=== PATIENT | male | born 1940 | race Caucasian/White ===

== ENCOUNTER 2017-12-10 05:11 | Emergency (ER) | payer MEDICARE ==
[~2017-12-10] VITALS: Ht 170.2 cm; Wt 83.6 kg
[~2017-12-10 05:11] MED LIST: ACET-812 PO; DABI150C PO; OMEG1CAP PO; PHEN100C4 PO; PRAV20TA4 PO
[2017-12-10] MEDS ORDERED: dexamethasone sod phosphate 10mg/ml inj IV STA (05:26)
[2017-12-10] MEDS ORDERED: ondansetron/PF 4mg/2ml inj IV ONE (05:30)
[2017-12-10] MEDS ORDERED: morphine 2 MG/ML inj. syringe IV ONE (05:30)
[2017-12-10] MEDS ORDERED: lisinopril 10 MG tablet PO ONE (06:15)
[2017-12-10] MEDS ORDERED: lisinopril 5mg tablet PO ONE (06:20)
[2017-12-10] MEDS ORDERED: HYDR-3965 PO (06:21)
[2017-12-10 06:31] VITALS: BP 179/96
== END 2017-12-10 06:34 | disposition home or self-care (01) ==
LOC: ER 05:12
DX: M62.830 Muscle spasm of back (principal); G89.29 Other chronic pain; I10 Essential (primary) hypertension; Z95.0 Presence of cardiac pacemaker; Z98.890 Other specified postprocedural states; Z88.0 Allergy status to penicillin; Z88.8 Allergy status to other drugs, medicaments and biological substances; Z79.899 Other long term (current) drug therapy
CPT/HCPCS: 72050; 96374; 96375; 99284; J1100; J2270; J2405

== ENCOUNTER 2018-09-18 09:06 | Outpatient (CLI) | payer MEDICARE | END 2018-09-18 23:59 | disposition home or self-care (01) | LOC: RAD 09:06 | PROVIDERS: ATTEND Orthopaedic Surgery Hand Surgery | DX: M47.812 Spondylosis without myelopathy or radiculopathy, cervical region (principal); G56.23 Lesion of ulnar nerve, bilateral upper limbs; M50.323 Other cervical disc degeneration at C6-C7 level; R20.2 Paresthesia of skin; I10 Essential (primary) hypertension | CPT/HCPCS: 72141 ==

== ENCOUNTER 2019-12-18 12:40 | Outpatient (CLI) | payer MEDICARE | END 2019-12-18 23:59 | disposition home or self-care (01) | LOC: VAS 12:40 | PROVIDERS: ATTEND Psychiatry & Neurology Neurology | DX: M19.031 Primary osteoarthritis, right wrist (principal); M47.812 Spondylosis without myelopathy or radiculopathy, cervical region; M50.21 Other cervical disc displacement, high cervical region; M50.221 Other cervical disc displacement at C4-C5 level; M50.223 Other cervical disc displacement at C6-C7 level; M48.02 Spinal stenosis, cervical region; I82.432 Acute embolism and thrombosis of left popliteal vein; G56.90 Unspecified mononeuropathy of unspecified upper limb | CPT/HCPCS: 72141; 73221; 93971 ==

== ENCOUNTER 2020-01-18 05:50 | Day surgery (SDC) | payer MEDICARE ==
[2020-01-11 14:54] LABS: BASOPHILS # (AUTO) 0.1 X10'3 (0-0.2); EOSINOPHILS # (AUTO) 0.2 X10'3 (0-0.9); HEMATOCRIT 47.4 % (42.0-52.0); HEMOGLOBIN 15.9 g/dl (14.0-17.9); LYMPHOCYTES # (AUTO) 1.5 X10'3 (1.1-4.8); LYMPHOCYTES % (AUTO) 23.7 % (21-51); MEAN CORPUSCULAR HEMOGLOBIN 32.9 PG (27.0-31.0); MEAN CORPUSCULAR HGB CONC 33.5 g/dL (33.0-36.5); MEAN CORPUSCULAR VOLUME 98.3 FL (78-98); MEAN PLATELET VOLUME 8.3 FL (7.4-10.4); MONOCYTES # (AUTO) 0.9 X10'3 (0-0.9); MONOCYTES % (AUTO) 13.8 % (2-12); NEUTROPHILS # (AUTO) 3.7 X10'3 (1.8-7.7); NEUTROPHILS % (AUTO) 58.5 % (42-75); PLATELET COUNT 169 X10'3 (140-440); RED BLOOD COUNT 4.82 X10'6 (4.70-6.10); RED CELL DISTRIBUTION WIDTH 14.4 % (11.5-14.5); WHITE BLOOD COUNT 6.3 X10'3 (4.5-11.0)
[2020-01-11 15:10] LABS: ALANINE AMINOTRANSFERASE 26 U/L (12-78); ALBUMIN 4.3 G/DL (3.4-5.0); ALBUMIN/GLOBULIN RATIO 1.3 (1.1-1.5); ALKALINE PHOSPHATASE 87 IU/L (46-116); ANION GAP 6 (8-16); ASPARTATE AMINO TRANSFERASE 24 U/L (10-37); BILIRUBIN,TOTAL 0.7 MG/DL (0.1-1.0); BLOOD UREA NITROGEN 20 MG/DL (7-18); BUN/CREATININE RATIO 21.1 (5.4-32.0); CALCIUM 9.4 MG/DL (8.5-10.1); CHLORIDE 108 MMOL/L (99-107); CREATININE 0.95 MG/DL (0.60-1.10); GLUCOSE 79 MG/DL (70-104); POTASSIUM 4.5 MMOL/L (3.5-5.1); SODIUM 142 MMOL/L (135-145); TOTAL CARBON DIOXIDE 28.1 MMOL/L (24-32); TOTAL PROTEIN 7.5 G/DL (6.4-8.2); eGFR 77 ML/MIN
[~2020-01-18] VITALS: Ht 170.2 cm; Wt 89.8 kg
[2020-01-18] VITALS (7 sets, daily range): BP systolic 116–178; BP diastolic 76–98
[~2020-01-18 05:50] MED LIST changes: +clindamycin-Cleocin 900mg/D5W 50 ML IV ONE; +famotidine 20mg tablet PO ONE; +ringers solution, lacted 1,000 ML IV SCH
[2020-01-18] MEDS ORDERED: BUPIVAcaine/PF 2.5 mg/ml (0.25%) 30ml vial ONE (06:47)
[2020-01-18] MEDS ORDERED: LIDOcaine 0.5% (5mg/ml) 50ml vial ONE (07:12)
[2020-01-18] MEDS ORDERED: ringers solution, lacted 1,000 ML IV SCH (07:17)
[2020-01-18] MEDS ORDERED: morphine 2 MG/ML inj. syringe IV PRN (07:20)
[2020-01-18] MEDS ORDERED: morphine 4 MG/ML inj SYRINge IV PRN (07:20)
[2020-01-18] MEDS ORDERED: ondansetron/PF 4mg/2ml inj IV PRN (07:20)
[2020-01-18] MEDS ORDERED: hydrALAZINE 20mg/ml inj. IV PRN (07:20)
[2020-01-18] MEDS ORDERED: labetalol 20mg/4ml (5mg/ml) syringe IV PRN (07:20)
[2020-01-18] MEDS ORDERED: fentaNYL/PF 50MCG/1 ML 2ML syringe IV PRN (07:20)
[2020-01-18] MEDS ORDERED: fentaNYL/PF 50MCG/1 ML 2ML syringe ONE (07:21)
[2020-01-18] MEDS ORDERED: MIDAZolam 1mg/ml 10ml vial ONE (07:21)
[2020-01-18] MEDS ORDERED: ketorolac trometh. 30mg/ml inj. ONE (07:24)
[2020-01-18] MEDS ORDERED: labetalol 20mg/4ml (5mg/ml) syringe IV ONE (07:41)
--- NOTE | 2020-01-18 08:05 | NUR ---
Received from OR via [facility] , accompanied by Anesthesiologist BOBBI and report given by Anesthesiolgist. PATIENT WITH 20G PIV IN LEFT UE RUNNING LR AT 100. DENIES PAIN. RIGHT ELBOW AND WRIST DRESSINGS ARE CDI. PATIENT WITH + CAP REFILL AND DENIES PAIN. Addendum: 01/18/20 at 0813 by Cyrus Wills RN, RN Amended: Links added.
--- NOTE | 2020-01-18 09:41 | NUR ---
ALL DC CRITERIA HAS BEEN MET. IV TAKEN OUT WITHOUT COMPLICATIONS. ALL INSTRUCTIONS COVERED AND ALL QUESTIONS ANSWERED. DRESSINGS CDI. OUT VIA WHEELCHAIR TO PERSONAL VEHICLE WHERE PATIENT WAS SECURED IN AND DRIVEN HOME BY FAMILY. DEMONSTRATED A SAFE GAIT OF 25 FEET AND AND PATIENT FEEL THEY ARE READY TO GO HOME. Addendum: 01/18/20 at 0952 by Cyrus Wills RN, RN Amended: Links added.
== END 2020-01-18 09:41 | disposition home or self-care (01) ==
LOC: PAS 05:50
PROVIDERS: ATTEND Orthopaedic Surgery Hand Surgery
DX: G56.01 Carpal tunnel syndrome, right upper limb (principal); G56.21 Lesion of ulnar nerve, right upper limb; G47.30 Sleep apnea, unspecified; I10 Essential (primary) hypertension; E11.9 Type 2 diabetes mellitus without complications; M19.90 Unspecified osteoarthritis, unspecified site; E78.00 Pure hypercholesterolemia, unspecified; M81.0 Age-related osteoporosis without current pathological fracture; M35.3 Polymyalgia rheumatica; G40.909 Epilepsy, unspecified, not intractable, without status epilepticus; Z95.0 Presence of cardiac pacemaker; Z98.890 Other specified postprocedural states; Z95.2 Presence of prosthetic heart valve; Z88.0 Allergy status to penicillin; Z79.899 Other long term (current) drug therapy; Z86.11 Personal history of tuberculosis; Z72.89 Other problems related to lifestyle; Z80.3 Family history of malignant neoplasm of breast; Z82.3 Family history of stroke; Z82.49 Family history of ischemic heart disease and other diseases of the circulatory system
CPT/HCPCS: 36415; 64718; 64721; 71045; 80053; 82948; 85025; J1885; J2001; J2250; J3010; J3490; A4215; A6449; J7120

== ENCOUNTER 2023-10-04 12:11 | Day surgery (SDC) | payer MEDICARE ==
[2023-10-04] VITALS (12 sets, daily range): BP systolic 135–219; BP diastolic 43–81; PULSE 69–91; RESP 16–23; TEMP 98.4; O2SAT 94–98
[~2023-10-04] VITALS: Ht 170.2 cm; Wt 86.5 kg
[~2023-10-04 12:11] MED LIST changes: -OMEG1CAP PO; +OMEG1CAP61 PO; -PHEN100C4 PO; -PRAV20TA4 PO; -clindamycin-Cleocin 900mg/D5W 50 ML IV ONE; -famotidine 20mg tablet PO ONE; -ringers solution, lacted 1,000 ML IV SCH
[2023-10-04] MEDS ORDERED: fentaNYL/PF 50MCG/1 ML 2ML syringe IV ONE (12:40)
[2023-10-04] MEDS ORDERED: MIDAZolam 1mg/ml 10ml vial IV ONE (12:40)
[2023-10-04] MEDS ORDERED: normal saline 1000ml 1,000 ML IV SCH (12:40)
[2023-10-04] MEDS ORDERED: APIX5TAB3 PO (13:15)
[2023-10-04] MEDS ORDERED: LOSA100T58 PO (13:15)
[2023-10-04] MEDS ORDERED: ROSU10TA28 PO (13:15)
[2023-10-04] MEDS ORDERED: LEVE500T PO (13:15)
[2023-10-04] MEDS ORDERED: FURO20TA4 PO (13:15)
== END 2023-10-04 17:01 | disposition home or self-care (01) ==
LOC: SSTAY O 12:11
PROVIDERS: ATTEND Student in an Organized Health Care Education/Training Program
DX: I08.0 Rheumatic disorders of both mitral and aortic valves (principal); I25.10 Atherosclerotic heart disease of native coronary artery without angina pectoris; I44.1 Atrioventricular block, second degree; E78.5 Hyperlipidemia, unspecified; I49.5 Sick sinus syndrome; I48.0 Paroxysmal atrial fibrillation; I25.2 Old myocardial infarction; I10 Essential (primary) hypertension; G43.B0 Ophthalmoplegic migraine, not intractable; G40.909 Epilepsy, unspecified, not intractable, without status epilepticus; Z85.46 Personal history of malignant neoplasm of prostate; Z95.0 Presence of cardiac pacemaker; Z79.899 Other long term (current) drug therapy; Z79.01 Long term (current) use of anticoagulants; Z88.0 Allergy status to penicillin; Z88.5 Allergy status to narcotic agent; Z91.048 Other nonmedicinal substance allergy status; Z95.2 Presence of prosthetic heart valve; Z82.49 Family history of ischemic heart disease and other diseases of the circulatory system
CPT/HCPCS: 93312; 93325; 94760; J2250; J3010; J7030; A4620

== ENCOUNTER 2023-11-25 13:17 | Day surgery (SDC) | payer MEDICARE ==
[2023-11-18 13:17] LABS: BASOPHILS # (AUTO) 0.1 X10'3 (0-0.2); BASOPHILS % (AUTO) 0.8 % (0-1); EOSINOPHILS # (AUTO) 0.2 X10'3 (0-0.9); EOSINOPHILS % (AUTO) 2.3 % (0-6); HEMATOCRIT 41.4 % (42.0-52.0); HEMOGLOBIN 13.4 g/dl (14.0-17.9); LYMPHOCYTES # (AUTO) 0.6 X10'3 (1.1-4.8); LYMPHOCYTES % (AUTO) 9.9 % (21-51); MEAN CORPUSCULAR HEMOGLOBIN 34.4 PG (27.0-31.0); MEAN CORPUSCULAR HGB CONC 32.3 g/dL (33.0-36.5); MEAN CORPUSCULAR VOLUME 106.6 FL (78-98); MEAN PLATELET VOLUME 10.5 FL (7.4-10.4); MONOCYTES # (AUTO) 0.7 X10'3 (0-0.9); MONOCYTES % (AUTO) 10.2 % (2-12); NEUTROPHILS % (AUTO) 76.8 % (42-75); PLATELET COUNT 95 X10'3 (140-440); RED BLOOD COUNT 3.89 X10'6 (4.70-6.10); RED CELL DISTRIBUTION WIDTH 15.5 % (11.5-14.5); WHITE BLOOD COUNT 6.5 X10'3 (4.5-11.0)
[2023-11-18 13:31] LABS: APTT 26 SECONDS (22-32); INR 1.1 INR; PROTHROMBIN TIME 11.6 SECONDS (9.0-12.0)
[2023-11-18 13:41] LABS: ALBUMIN 4.3 G/DL (3.4-5.0); ANION GAP 9 (8-16); BLOOD UREA NITROGEN 26 MG/DL (7-18); BUN/CREATININE RATIO 32.5 (10.0-20.0); CALCIUM 9.8 MG/DL (8.5-10.1); CHLORIDE 108 MMOL/L (99-107); CHOL/HDL RATIO 1.9 (0.00-4.99); CHOLESTEROL 102 MG/DL (0-200); GLUCOSE 113 MG/DL (70-104); HDL CHOLESTEROL 54 MG/DL (35-60); LDL CHOLESTEROL 39 MG/DL (50-100); POTASSIUM 4.5 MMOL/L (3.5-5.1); SODIUM 144 MMOL/L (135-145); TOTAL CARBON DIOXIDE 26.9 MMOL/L (24-32); TRIGLYCERIDES 36 MG/DL (20-135); eGFR > 90 ML/MIN
[2023-11-18 15:28] LABS: ALANINE AMINOTRANSFERASE 22 U/L (12-78); ALBUMIN/GLOBULIN RATIO 1.5 (1.1-1.5); ALKALINE PHOSPHATASE 52 IU/L (46-116); ASPARTATE AMINO TRANSFERASE 25 U/L (10-37); BILIRUBIN,DIRECT 0.4 MG/DL (0-0.3); BILIRUBIN,TOTAL 1.1 MG/DL (0.1-1.0); TOTAL PROTEIN 7.2 G/DL (6.4-8.2)
[2023-11-25] VITALS (10 sets, daily range): BP systolic 151–183; BP diastolic 52–61; PULSE 68–71; RESP 15–25; TEMP 97.6; O2SAT 93–96
[~2023-11-25] VITALS: Ht 170.2 cm; Wt 88.1 kg
[~2023-11-25 13:17] MED LIST changes: +APIX5TAB3 PO; -DABI150C PO; +FURO20TA4 PO; +LEVE500T PO; +LOSA100T58 PO; -OMEG1CAP61 PO; +ROSU10TA28 PO
[2023-11-25] MEDS ORDERED: diphenhydrAMINE 25mg capsule PO PRN (14:00)
[2023-11-25] MEDS ORDERED: normal saline 1,000 ML IV SCH (14:00)
[2023-11-25] MEDS ORDERED: LORazepam 0.5 MG tablet PO PRN (14:00)
[2023-11-25 14:10] LABS: BASOPHILS % (AUTO) 0.7 % (0-1); EOSINOPHILS # (AUTO) 0.1 X10'3 (0-0.9); EOSINOPHILS % (AUTO) 1.1 % (0-6); HEMATOCRIT 40.9 % (42.0-52.0); HEMOGLOBIN 13.3 g/dl (14.0-17.9); LYMPHOCYTES # (AUTO) 0.6 X10'3 (1.1-4.8); LYMPHOCYTES % (AUTO) 7.8 % (21-51); MEAN CORPUSCULAR HEMOGLOBIN 34.6 PG (27.0-31.0); MEAN CORPUSCULAR HGB CONC 32.4 g/dL (33.0-36.5); MEAN CORPUSCULAR VOLUME 106.7 FL (78-98); MEAN PLATELET VOLUME 9.5 FL (7.4-10.4); MONOCYTES # (AUTO) 0.9 X10'3 (0-0.9); MONOCYTES % (AUTO) 11.8 % (2-12); NEUTROPHILS # (AUTO) 5.8 X10'3 (1.8-7.7); NEUTROPHILS % (AUTO) 78.6 % (42-75); PLATELET COUNT 90 X10'3 (140-440); RED BLOOD COUNT 3.83 X10'6 (4.70-6.10); RED CELL DISTRIBUTION WIDTH 15.1 % (11.5-14.5); WHITE BLOOD COUNT 7.3 X10'3 (4.5-11.0)
[2023-11-25] MEDS ORDERED: MULT-1120 PO (14:16)
[2023-11-25] MEDS ORDERED: tumeric PO (14:16)
[2023-11-25] MEDS ORDERED: CYAN1TAB41 PO (14:16)
[2023-11-25 14:24] LABS: ANION GAP 10 (8-16); BLOOD UREA NITROGEN 31 MG/DL (7-18); CALCIUM 9.5 MG/DL (8.5-10.1); CHLORIDE 108 MMOL/L (99-107); CREATININE 0.86 MG/DL (0.60-1.10); GLUCOSE 89 MG/DL (70-104); POTASSIUM 4.2 MMOL/L (3.5-5.1); SODIUM 142 MMOL/L (135-145); TOTAL CARBON DIOXIDE 24.3 MMOL/L (24-32); eCRCL 63 ML/MIN; eGFR 85 ML/MIN
[2023-11-25 14:26] LABS: INR 1.1 INR; PROTHROMBIN TIME 11.9 SECONDS (9.0-12.0)
[2023-11-25] MEDS ORDERED: LIDOcaine 1% (10mg/ml) 2ml vial ONE (15:58)
[2023-11-25] MEDS ORDERED: verapamil 2.5 mg/ml inj IV ONE (15:58)
[2023-11-25] MEDS ORDERED: midazolam 1 mg/ML 2ml injection ONE (15:58)
[2023-11-25] MEDS ORDERED: heparin 1,000unit/ml 10ml vial 10 ML ONE (15:58)
[2023-11-25] MEDS ORDERED: fentaNYL/PF 50MCG/1 ML 2ML syringe ONE (15:58)
[2023-11-25] MEDS ORDERED: iohexol 350MG/ML 100ml bottle IV ONE (15:58)
[2023-11-25] MEDS ORDERED: nitroGLYCERIN 500mcg/5mL D5W 5 ML IV ONE (15:59)
[2023-11-25 16:00] LABS: PLATELET ESTIMATE DECREASED
[2023-11-25 16:02] LABS: BURR CELLS 1+; SCHISTOCYTES FEW
[2023-11-25 16:03] LABS: ELLIPTOCYTES 1+
[2023-11-25] MEDS ORDERED: HYDROcodone/acetaminophen 5mg/325mg tablet PO PRN (17:10)
[2023-11-25] MEDS ORDERED: HYDROcodone/acetaminophen 10/325mg tab PO PRN (17:10)
== END 2023-11-25 19:15 | disposition home or self-care (01) ==
LOC: SSTAY O 13:17
PROVIDERS: ATTEND Student in an Organized Health Care Education/Training Program
DX: I08.3 Combined rheumatic disorders of mitral, aortic and tricuspid valves (principal); I25.10 Atherosclerotic heart disease of native coronary artery without angina pectoris; I44.1 Atrioventricular block, second degree; I48.0 Paroxysmal atrial fibrillation; I49.5 Sick sinus syndrome; I10 Essential (primary) hypertension; I27.20 Pulmonary hypertension, unspecified; E78.5 Hyperlipidemia, unspecified; G40.909 Epilepsy, unspecified, not intractable, without status epilepticus; I25.2 Old myocardial infarction; Z95.0 Presence of cardiac pacemaker; Z86.718 Personal history of other venous thrombosis and embolism; Z79.899 Other long term (current) drug therapy; Z79.01 Long term (current) use of anticoagulants; Z85.46 Personal history of malignant neoplasm of prostate; Z88.0 Allergy status to penicillin; Z88.5 Allergy status to narcotic agent; Z88.8 Allergy status to other drugs, medicaments and biological substances; Z91.048 Other nonmedicinal substance allergy status
CPT/HCPCS: 36415; 80048; 80061; 80076; 85025; 85610; 85730; 93005; 93458; 93567; 99152; A6258; J1644; J2250; J3010; J3490; J7030; Q0163; Q9967; 85008; 93452; A6402; C1894

== ENCOUNTER 2023-12-08 11:28 | Outpatient (CLI) | payer MEDICARE ==
[~2023-12-08 11:28] MED LIST changes: +CYAN1TAB41 PO; -FURO20TA4 PO; +MULT-1120 PO; +tumeric PO
[2023-12-08 12:30] LABS: APTT 29 SECONDS (22-32); BASOPHILS % (AUTO) 0.6 % (0-1); EOSINOPHILS # (AUTO) 0.1 X10'3 (0-0.9); EOSINOPHILS % (AUTO) 1.4 % (0-6); HEMATOCRIT 41.1 % (42.0-52.0); HEMOGLOBIN 13.5 g/dl (14.0-17.9); INR 1.2 INR; LYMPHOCYTES # (AUTO) 0.6 X10'3 (1.1-4.8); LYMPHOCYTES % (AUTO) 8.1 % (21-51); MEAN CORPUSCULAR HEMOGLOBIN 34.6 PG (27.0-31.0); MEAN CORPUSCULAR HGB CONC 32.8 g/dL (33.0-36.5); MEAN CORPUSCULAR VOLUME 105.6 FL (78-98); MEAN PLATELET VOLUME 10.4 FL (7.4-10.4); MONOCYTES # (AUTO) 0.7 X10'3 (0-0.9); MONOCYTES % (AUTO) 9.5 % (2-12); NEUTROPHILS # (AUTO) 6.2 X10'3 (1.8-7.7); NEUTROPHILS % (AUTO) 80.4 % (42-75); PLATELET COUNT 87 X10'3 (140-440); RED BLOOD COUNT 3.89 X10'6 (4.70-6.10); RED CELL DISTRIBUTION WIDTH 14.8 % (11.5-14.5); WHITE BLOOD COUNT 7.8 X10'3 (4.5-11.0)
[2023-12-08 12:41] LABS: ALANINE AMINOTRANSFERASE 21 U/L (12-78); ALBUMIN 4.1 G/DL (3.4-5.0); ALBUMIN/GLOBULIN RATIO 1.5 (1.1-1.5); ALKALINE PHOSPHATASE 56 IU/L (46-116); ANION GAP 7 (8-16); ASPARTATE AMINO TRANSFERASE 20 U/L (10-37); BLOOD UREA NITROGEN 37 MG/DL (7-18); BUN/CREATININE RATIO 37.4 (10.0-20.0); CALCIUM 9.5 MG/DL (8.5-10.1); CHLORIDE 106 MMOL/L (99-107); CREATININE 0.99 MG/DL (0.60-1.10); GLUCOSE 111 MG/DL (70-104); POTASSIUM 4.3 MMOL/L (3.5-5.1); PRO BRAIN NATRIURETIC PEPTIDE 5068 PG/ML (0-450); SODIUM 140 MMOL/L (135-145); TOTAL PROTEIN 6.9 G/DL (6.4-8.2); eGFR 73 ML/MIN
[2023-12-08] MEDS ORDERED: IODIXANOL 320 MG/ML INFUS..BTL 100ML IV ONE (13:04)
== END 2023-12-08 23:59 | disposition home or self-care (01) ==
LOC: RAD 11:28
PROVIDERS: ATTEND Internal Medicine Cardiovascular Disease
DX: I08.0 Rheumatic disorders of both mitral and aortic valves (principal); R06.02 Shortness of breath; I65.29 Occlusion and stenosis of unspecified carotid artery; I11.9 Hypertensive heart disease without heart failure; I77.89 Other specified disorders of arteries and arterioles; M47.816 Spondylosis without myelopathy or radiculopathy, lumbar region; M85.88 Other specified disorders of bone density and structure, other site; Z96.642 Presence of left artificial hip joint
CPT/HCPCS: 36415; 71275; 74174; 75574; 80053; 83880; 85025; 85610; 85730; J3490; Q9967

== ENCOUNTER 2023-12-14 11:30 | Emergency (ER) | payer MEDICARE ==
[~2023-12-14] VITALS: Ht 170.2 cm; Wt 88.0 kg
[2023-12-14 11:59] LABS: BASOPHILS # (AUTO) 0.1 X10'3 (0-0.2); BASOPHILS % (AUTO) 0.9 % (0-1); EOSINOPHILS # (AUTO) 0.1 X10'3 (0-0.9); EOSINOPHILS % (AUTO) 1.9 % (0-6); HEMATOCRIT 40.6 % (42.0-52.0); HEMOGLOBIN 13.2 g/dl (14.0-17.9); LYMPHOCYTES # (AUTO) 0.7 X10'3 (1.1-4.8); LYMPHOCYTES % (AUTO) 11.5 % (21-51); MEAN CORPUSCULAR HEMOGLOBIN 34.2 PG (27.0-31.0); MEAN CORPUSCULAR HGB CONC 32.4 g/dL (33.0-36.5); MEAN CORPUSCULAR VOLUME 105.3 FL (78-98); MEAN PLATELET VOLUME 10.4 FL (7.4-10.4); MONOCYTES # (AUTO) 0.7 X10'3 (0-0.9); MONOCYTES % (AUTO) 11.7 % (2-12); NEUTROPHILS # (AUTO) 4.3 X10'3 (1.8-7.7); PLATELET COUNT 87 X10'3 (140-440); RED BLOOD COUNT 3.85 X10'6 (4.70-6.10); RED CELL DISTRIBUTION WIDTH 14.9 % (11.5-14.5); WHITE BLOOD COUNT 5.9 X10'3 (4.5-11.0)
[2023-12-14 12:22] LABS: ALBUMIN 4.2 G/DL (3.4-5.0); ANION GAP 8 (8-16); BLOOD UREA NITROGEN 31 MG/DL (7-18); CALCIUM 9.6 MG/DL (8.5-10.1); CHLORIDE 106 MMOL/L (99-107); CREATININE 0.94 MG/DL (0.60-1.10); GLUCOSE 99 MG/DL (70-104); POTASSIUM 4.5 MMOL/L (3.5-5.1); PRO BRAIN NATRIURETIC PEPTIDE 3244 PG/ML (0-450); SODIUM 140 MMOL/L (135-145); TOTAL CARBON DIOXIDE 26.1 MMOL/L (24-32); eGFR 77 ML/MIN
[2023-12-14] MEDS ORDERED: FURO-150 PO (13:33)
[2023-12-14] MEDS ORDERED: iohexol 300mg/ml 100ml inj. ONE (14:56)
[2023-12-14 14:57] LABS: BILIRUBIN,URINE NEGATIVE (Neg); CLARITY,URINE CLEAR (Clear); COLOR,URINE YELLOW (Yellow); GLUCOSE, URINE NEGATIVE (Neg); KETONES,URINE NEGATIVE (Neg); LEUKOCYTE ESTERASE ,URINE NEGATIVE (Neg); NITRITES, URINE NEGATIVE (Neg); OCCULT BLOOD,URINE NEGATIVE (Neg); PROTEIN,URINE NEGATIVE (Neg); UROBILINOGEN,URINE 0.2 E.U/dL (0.2-1.0)
[2023-12-14 15:15] LABS: UA COLLECTION TYPE CLN CATCH MIDSTREAM
[2023-12-14 15:48] LABS: URINE AMPHETAMINE SCREEN NEGATIVE (Neg); URINE BARBITUATE SCREEN NEGATIVE (Neg); URINE BENZODIAZEPINES SCREEN NEGATIVE (Neg); URINE CANNABINOID SCREEN NEGATIVE (Neg); URINE COCAINE SCREEN NEGATIVE (Neg); URINE METHADONE SCREEN NEGATIVE (Neg); URINE OPIATE SCREEN NEGATIVE (Neg); URINE PHENCYCLIDINE SCREEN NEGATIVE (Neg)
[2023-12-14 16:14] LABS: BASOPHILS % (AUTO) 0.7 % (0-1); EOSINOPHILS # (AUTO) 0.1 X10'3 (0-0.9); EOSINOPHILS % (AUTO) 1.8 % (0-6); HEMATOCRIT 39.2 % (42.0-52.0); HEMOGLOBIN 12.8 g/dl (14.0-17.9); LYMPHOCYTES # (AUTO) 0.6 X10'3 (1.1-4.8); LYMPHOCYTES % (AUTO) 11.1 % (21-51); MEAN CORPUSCULAR HEMOGLOBIN 34.3 PG (27.0-31.0); MEAN CORPUSCULAR HGB CONC 32.7 g/dL (33.0-36.5); MEAN PLATELET VOLUME 10.3 FL (7.4-10.4); MONOCYTES # (AUTO) 0.5 X10'3 (0-0.9); MONOCYTES % (AUTO) 9.7 % (2-12); NEUTROPHILS # (AUTO) 4.2 X10'3 (1.8-7.7); NEUTROPHILS % (AUTO) 76.7 % (42-75); PLATELET COUNT 83 X10'3 (140-440); RED BLOOD COUNT 3.73 X10'6 (4.70-6.10); RED CELL DISTRIBUTION WIDTH 14.9 % (11.5-14.5); WHITE BLOOD COUNT 5.4 X10'3 (4.5-11.0)
[2023-12-14 16:18] VITALS: TEMP 98
[2023-12-14 16:21] LABS: APTT 30 SECONDS (22-32); INR 1.2 INR; PROTHROMBIN TIME 13.1 SECONDS (9.0-12.0)
[2023-12-14 17:47] VITALS: BP 149/53; PULSE 69; RESP 18; O2SAT 97
== END 2023-12-14 18:31 | disposition admitted as inpatient to this hospital (09) ==
LOC: ER 11:30
DX: G45.9 Transient cerebral ischemic attack, unspecified (principal); I63.9 Cerebral infarction, unspecified; G45.4 Transient global amnesia; D64.9 Anemia, unspecified; R79.89 Other specified abnormal findings of blood chemistry; I10 Essential (primary) hypertension; Z88.0 Allergy status to penicillin; Z88.8 Allergy status to other drugs, medicaments and biological substances; Z88.5 Allergy status to narcotic agent; Z79.899 Other long term (current) drug therapy
CPT/HCPCS: 36415; 70450; 70496; 70498; 71045; 80048; 80305; 81003; 82948; 83880; 84145; 84484; 85025; 85610; 85730; 86885; 86900; 86901; 93005; 99285; J3490; Q9967

== ENCOUNTER 2024-01-12 06:14 | Inpatient (IN) | payer MEDICARE ==
[2024-01-05 15:09] LABS: BASOPHILS % (AUTO) 0.5 % (0-1); EOSINOPHILS # (AUTO) 0.2 X10'3 (0-0.9); EOSINOPHILS % (AUTO) 3.1 % (0-6); LYMPHOCYTES # (AUTO) 0.7 X10'3 (1.1-4.8); LYMPHOCYTES % (AUTO) 9.4 % (21-51); MEAN CORPUSCULAR HEMOGLOBIN 33.9 PG (27.0-31.0); MEAN CORPUSCULAR HGB CONC 32.7 g/dL (33.0-36.5); MEAN CORPUSCULAR VOLUME 103.7 FL (78-98); MEAN PLATELET VOLUME 9.9 FL (7.4-10.4); MONOCYTES # (AUTO) 0.8 X10'3 (0-0.9); MONOCYTES % (AUTO) 10.6 % (2-12); NEUTROPHILS # (AUTO) 5.8 X10'3 (1.8-7.7); NEUTROPHILS % (AUTO) 76.4 % (42-75); PRE OP HEMATOCRIT 40.9 % (42.0-52.0); PRE OP HEMOGLOBIN 13.4 g/dL (14.0-17.9); PRE OP PLATELET COUNT 103 X10'3 (140-440); PRE OP WHITE BLOOD COUNT 7.5 10'3 (4.8-10.8); RED BLOOD COUNT 3.94 X10'6 (4.70-6.10); RED CELL DISTRIBUTION WIDTH 14.1 % (11.5-14.5)
[2024-01-05 15:23] LABS: PRE OP INR 1.1 INR
[2024-01-05 15:27] LABS: BILIRUBIN,URINE NEGATIVE (Neg); CLARITY,URINE CLEAR (Clear); COLOR,URINE YELLOW (Yellow); GLUCOSE, URINE NEGATIVE (Neg); KETONES,URINE NEGATIVE (Neg); LEUKOCYTE ESTERASE ,URINE NEGATIVE (Neg); NITRITES, URINE NEGATIVE (Neg); OCCULT BLOOD,URINE NEGATIVE (Neg); PH,URINE 5.5 (4.8-8.0); PROTEIN,URINE NEGATIVE (Neg); UROBILINOGEN,URINE 0.2 E.U/dL (0.2-1.0)
[2024-01-05 15:32] LABS: UA COLLECTION TYPE VOIDED
[2024-01-05 15:41] LABS: ALBUMIN 4.5 G/DL (3.4-5.0); ALBUMIN/GLOBULIN RATIO 1.5 (1.1-1.5); ALKALINE PHOSPHATASE 70 IU/L (46-116); BLOOD UREA NITROGEN 31 MG/DL (7-18); BUN/CREATININE RATIO 30.4 (10.0-20.0); CALCIUM 9.2 MG/DL (8.5-10.1); CHLORIDE 104 MMOL/L (99-107); CREATININE 1.02 MG/DL (0.60-1.10); PRE OP ALT 24 U/L (30-65); PRE OP ANION GAP 12 (8-16); PRE OP AST 25 U/L (10-37); PRE OP BILIRUB, TOTAL 0.8 MG/DL (0.0-1.0); PRE OP GLUCOSE 110 MG/DL (70-104); PRE OP POTASSIUM 3.8 MMOL/L (3.4-5.1); PRE OP SODIUM 146 MMOL/L (135-145); PRO BRAIN NATRIURETIC PEPTIDE 3372 PG/ML (0-450); TOTAL CARBON DIOXIDE 30.3 MMOL/L (24-32); TOTAL PROTEIN 7.5 G/DL (6.4-8.2); eGFR 70 ML/MIN
[~2024-01-12] VITALS: Ht 170.2 cm; Wt 81.0 kg
[2024-01-12] VITALS (20 sets, daily range): BP systolic 124–160; BP diastolic 59–101; PULSE 96–107; RESP 16–23; TEMP 97.6–97.9; O2SAT 93–100
[2024-01-12] MEDS: phenylephrine inj 50 MG in normal saline 250ml IV solN IV SCH (05:30)
[2024-01-12] MEDS: nitroPRUSSIDE (NIPRIDE) (200MCG/ML) 100ML Drip IV SCH (05:30)
[~2024-01-12 06:14] MED LIST changes: -CYAN1TAB41 PO; +ETHA25TA4 PO; +MULT-1085 PO; +OMEG1CAP61 PO; +ZINC220T3 PO; +ondansetron/PF 4mg/2ml inj IV PRN
[2024-01-12] MEDS: vancomycin 1,500 MG in NS 300ml IV soln IV ONE (07:27)
[2024-01-12] MEDS: ringers solution, lacted 1,000 ML IV SCH ×2 (07:27→10:55)
[2024-01-12] MEDS: aspirin 325mg tablet PO ONE (07:32)
[2024-01-12] MEDS: famotidine 20mg tablet PO ONE (07:32)
[2024-01-12] MEDS ORDERED: morphine 4 MG/ML inj SYRINge IV PRN (07:55)
[2024-01-12] MEDS ORDERED: ondansetron/PF 4mg/2ml inj IV PRN ×2 (07:55→10:40)
[2024-01-12] MEDS ORDERED: morphine 2 MG/ML inj. syringe IV PRN (07:55)
[2024-01-12] MEDS ORDERED: meperidine/PF 25mg/ml syringe IV PRN ×3 (07:55)
[2024-01-12] MEDS ORDERED: proCHLORperazine 10 MG/2 ml inj IV PRN ×2 (07:55→10:40)
[2024-01-12] MEDS ORDERED: protamine sulf. 10mg/ml inj. IV ONE (08:52)
[2024-01-12] MEDS ORDERED: sevoflurane 250ml liquid IH ONE (08:52)
[2024-01-12] MEDS ORDERED: LIDOcaine 1% 30ml preserv. free vial ONE (08:53)
[2024-01-12] MEDS ORDERED: iohexol 350MG/ML 100ml bottle IV ONE (08:53)
[2024-01-12] MEDS ORDERED: heparin 1,000 UNITS/NS 500ml 1,500 ML ONE (08:53)
[2024-01-12] MEDS ORDERED: fentaNYL/PF 50MCG/1 ML 2ML syringe ONE (08:57)
[2024-01-12] MEDS ORDERED: midazolam 1 mg/ML 2ml injection ONE (08:57)
[2024-01-12] MEDS ORDERED: acetaminophen 325mg tablet PO PRN (09:15)
[2024-01-12] MEDS ORDERED: protamine sulfate 10mg/ml inj. ONE (10:07)
[2024-01-12] MEDS ORDERED: propofol inj 20 ML IV ONE (10:17)
[2024-01-12] MEDS ORDERED: heparin 1,000unit/ml 10ml vial 10 ML ONE (10:17)
[2024-01-12] MEDS ORDERED: magnesium 2GM in 50ml NS 50 ML IV PRN (10:40)
[2024-01-12] MEDS ORDERED: docusate sod 100mg capsule PO PRN (10:40)
[2024-01-12] MEDS ORDERED: diphenhydrAMINE 25mg capsule PO PRN (10:40)
[2024-01-12] MEDS ORDERED: ALPRAZolam 0.25mg tablet PO PRN (10:40)
[2024-01-12] MEDS ORDERED: pantoprazole 40mg Tablet.DR PO PRN (10:40)
[2024-01-12] MEDS ORDERED: potassium Cl 40MEQ/1/2NS 520ml 520 ML IV PRN (10:40)
[2024-01-12] MEDS ORDERED: labetalol 20mg/4ml (5mg/ml) syringe IV PRN (10:40)
[2024-01-12] MEDS ORDERED: potassium Cl 20mEq/100mL bag 100 ML IV PRN (10:40)
[2024-01-12] MEDS ORDERED: hydrALAZINE 20mg/ml inj. IV PRN (10:40)
[2024-01-12] MEDS: normal saline 1000ml 1,000 ML IV SCH (10:40)
[2024-01-12] MEDS ORDERED: potassium Cl 20 mEq SR tablet PO PRN (10:40)
[2024-01-12] MEDS ORDERED: magnesium 4gm in 100ml NS 100 ML IV PRN (10:40)
[2024-01-12] MEDS ORDERED: potassium CL 10mEq/100ml bag 100 ML IV PRN (10:40)
[2024-01-12] MEDS ORDERED: potassium Cl 40MEQ/270ML bag 250 ML IV PRN (10:40)
[2024-01-12] MEDS: hydrALAZINE 20mg/ml inj. IV ONE (10:49)
[2024-01-12] MEDS: sod chloride 0.9% 10ml flush syringe IV SCH (16:00)
[2024-01-12] MEDS: losartan 50mg tablet PO ONE (16:31)
[2024-01-12] MEDS: ETHACRYNIC ACID 25 MG PO SCH (20:00)
[2024-01-12] MEDS: atorvastatin 20mg tablet PO SCH (20:13)
[2024-01-12] MEDS: levetiracetam 250mg tablet PO SCH (20:13)
[2024-01-12] MEDS: losartan 50mg tablet PO SCH (20:14)
[2024-01-12] MEDS: acetaminophen 325mg tablet PO PRN (20:15)
[2024-01-12] MEDS: vancomycin/NS 1 GM ADD-VANTAGE 250 ML IV SCH (22:46)
[2024-01-13 06:00] VITALS: BP 170/98; PULSE 99; RESP 15; TEMP 97.8; O2SAT 96
[2024-01-13 06:46] LABS: BASOPHILS # (AUTO) 0.1 X10'3 (0-0.2); BASOPHILS % (AUTO) 0.7 % (0-1); EOSINOPHILS # (AUTO) 0.1 X10'3 (0-0.9); EOSINOPHILS % (AUTO) 1.2 % (0-6); HEMATOCRIT 36.7 % (42.0-52.0); HEMOGLOBIN 12.4 g/dl (14.0-17.9); LYMPHOCYTES # (AUTO) 0.4 X10'3 (1.1-4.8); LYMPHOCYTES % (AUTO) 5.1 % (21-51); MEAN CORPUSCULAR HEMOGLOBIN 34.4 PG (27.0-31.0); MEAN CORPUSCULAR HGB CONC 33.9 g/dL (33.0-36.5); MEAN CORPUSCULAR VOLUME 101.5 FL (78-98); MEAN PLATELET VOLUME 9.8 FL (7.4-10.4); MONOCYTES # (AUTO) 0.7 X10'3 (0-0.9); MONOCYTES % (AUTO) 8.1 % (2-12); NEUTROPHILS # (AUTO) 6.9 X10'3 (1.8-7.7); NEUTROPHILS % (AUTO) 84.9 % (42-75); PLATELET COUNT 100 X10'3 (140-440); RED BLOOD COUNT 3.62 X10'6 (4.70-6.10); RED CELL DISTRIBUTION WIDTH 14.1 % (11.5-14.5); WHITE BLOOD COUNT 8.1 X10'3 (4.5-11.0)
[2024-01-13 07:14] LABS: ALANINE AMINOTRANSFERASE 20 U/L (12-78); ALBUMIN 3.6 G/DL (3.4-5.0); ALBUMIN/GLOBULIN RATIO 1.3 (1.1-1.5); ALKALINE PHOSPHATASE 66 IU/L (46-116); ANION GAP 12 (8-16); ASPARTATE AMINO TRANSFERASE 24 U/L (10-37); BLOOD UREA NITROGEN 31 MG/DL (7-18); BUN/CREATININE RATIO 36.5 (10.0-20.0); CALCIUM 9.1 MG/DL (8.5-10.1); CHLORIDE 106 MMOL/L (99-107); CREATININE 0.85 MG/DL (0.60-1.10); GLUCOSE 113 MG/DL (70-104); MAGNESIUM 2.2 MG/DL (1.5-2.4); PRO BRAIN NATRIURETIC PEPTIDE 10105 PG/ML (0-450); SODIUM 144 MMOL/L (135-145); TOTAL CARBON DIOXIDE 26.4 MMOL/L (24-32); TOTAL PROTEIN 6.4 G/DL (6.4-8.2); eCRCL 63 ML/MIN; eGFR 86 ML/MIN
[2024-01-13 08:00] VITALS: RESP 18; O2SAT 93
[2024-01-13] MEDS ORDERED: LUTEIN PO SCH (08:00)
[2024-01-13] MEDS ORDERED: MULTIVIT MIN PO SCH (08:00)
[2024-01-13] MEDS ORDERED: ZEAXANT PO SCH (08:00)
[2024-01-13] MEDS ORDERED: TUMERIC PO SCH (08:00)
[2024-01-13] MEDS ORDERED: [UNRECOGNIZED DRUG - OTHER] PO SCH (08:00)
[2024-01-13] MEDS: multivitamins, therapeutics tablet PO SCH (08:52)
[2024-01-13] MEDS: zinc sulfate 220mg capsule PO SCH (08:52)
[2024-01-13 11:00] VITALS: BP 156/85; PULSE 99; RESP 18; TEMP 97.8; O2SAT 93
[2024-01-13 15:00] VITALS: BP 160/92; PULSE 101; RESP 18; TEMP 98.6; O2SAT 94
[2024-01-13] MEDS ORDERED: METO-539 PO (15:55)
== END 2024-01-13 17:24 | disposition home or self-care (01) | DRG 266 ==
LOC: PAS IN 06:14 → EDSTATUS 08:30 → PCU 3S 12:18
PROVIDERS: ADMIT Internal Medicine Cardiovascular Disease; ATTEND Internal Medicine Cardiovascular Disease
PROC: 03HY32Z Insertion of Monitoring Device into Upper Artery, Percutaneous Approach (ICD-10-PCS; 2024-01-12)
PROC: B41G1ZZ Fluoroscopy of Left Lower Extremity Arteries using Low Osmolar Contrast (ICD-10-PCS; 2024-01-12)
PROC: B41F1ZZ Fluoroscopy of Right Lower Extremity Arteries using Low Osmolar Contrast (ICD-10-PCS; 2024-01-12)
PROC: B3101ZZ Fluoroscopy of Thoracic Aorta using Low Osmolar Contrast (ICD-10-PCS; 2024-01-12)
PROC: 02RF38N Replacement of Aortic Valve with Zooplastic Tissue, using Rapid Deployment Technique, Percutaneous Approach (ICD-10-PCS; principal; 2024-01-12 08:52)
DX: T82.897A Other specified complication of cardiac prosthetic devices, implants and grafts, initial encounter (principal); Z00.6 Encounter for examination for normal comparison and control in clinical research program; I50.33 Acute on chronic diastolic (congestive) heart failure; I48.91 Unspecified atrial fibrillation; I11.0 Hypertensive heart disease with heart failure; I08.1 Rheumatic disorders of both mitral and tricuspid valves; E78.5 Hyperlipidemia, unspecified; I49.5 Sick sinus syndrome; Y83.1 Surgical operation with implant of artificial internal device as the cause of abnormal reaction of the patient, or of later complication, without mention of misadventure at the time of the procedure; Z95.0 Presence of cardiac pacemaker; Y92.89 Other specified places as the place of occurrence of the external cause
CPT/HCPCS: 33361; 36415; 71045; 76937; 80053; 81003; 82948; 83735; 83880; 85025; 85347; 85610; 85730; 86885; 86900; 86901; 86920; 87081; 93005; 93308; A4615; A4618; A6258; A6449; C1756; C1760; C1769; C1892; C1894; G0378; J0360; J1644; J2250; J2370; J2704; J2720; J3010; J3370; J3490; J7030; J7040; J7050; J7120; Q9967